=== PATIENT | male | born 1975 | race African-American/Black ===

== ENCOUNTER 2020-08-18 00:53 | Inpatient (IN) ==
[2020-08-18] MEDS ORDERED: VANCOMYCIN INJ 1,000 MG in SODIUM CHLORIDE 0.9% 250 ML IV STA ×2 (01:18→02:58)
[2020-08-18] MEDS ORDERED: PIPERACILLIN/TAZOBACTAM 3,375 MG in SODIUM CHLORIDE 0.9% 100 ML IV STA (01:18)
[2020-08-18] MEDS ORDERED: hydrALAZINE 20 MG/1 ML VIAL IV STA (01:18)
[2020-08-18] MEDS ORDERED: HYDROmorphone 2 MG/1 ML VIAL IV STA (01:18)
[2020-08-18] MEDS ORDERED: ONDANSETRON 4 MG/2 ML VIAL IV STA (01:18)
[2020-08-18 01:30] LABS: Basophils % 0.4 % (0.0-0.8); Eosinophils # 0.2 10*3/uL (0.0-0.87); Eosinophils % 2.4 % (0.00-10.9); Hematocrit 41.7 VOL% (42.0-52.0); Hemoglobin 12.7 GM/DL (14.0-18.0); Immature Granulocytes % 0.4 %; Immature Granulocytes Absolute 0.04 #; Lymphocytes # 2.3 10*3/uL (1.4-4.0); Lymphocytes % 23.6 % (21.2-54.2); Mean Corpuscular HGB Conc 30.5 GM/DL (32-36); Mean Corpuscular Volume 92.5 FL (87-102); Mean Platelet Volume 11.5 FL (9.6-12.0); Monocytes % 11.8 % (1.7-12.7); Neutrophils % 61.4 % (38.7-73.9); Platelet Count 203 T/CUMM (130-400); Red Blood Count 4.51 MC/CUMM (3.8-5.5); Red Cell Distribution Width 13.4 % (9.3-17.3); White Blood Count 9.7 T/CUMM (4-12)
[2020-08-18 01:48] LABS: Alanine Aminotransferase 17 U/L (16-61); Albumin 3.3 G/DL (3.4-5.0); Alkaline Phosphatase 67 U/L (45-117); Aspartate Amino Transferase 11 U/L (0-37); Bilirubin,Total < 0.39 MG/DL (0.2-1.0); Blood Urea Nitrogen 14 MG/DL (7-18); Calcium 8.8 MG/DL (8.5-10.1); Carbon Dioxide 33 MMOL/L (21-32); Estimated Glom Filtration Rate 154 ML/MIN; Glucose 346 MG/DL (74-106); Potassium 3.9 MMOL/L (3.5-5.1); Sodium 136 MMOL/L (136-145)
[2020-08-18 01:49] LABS: Troponin I 0.096 NG/ML (0.00-0.045)
[2020-08-18] MEDS ORDERED: INSULIN REGULAR 100 UNIT/ML SUBCUT STA (01:54)
[2020-08-18] MEDS ORDERED: GLUCAGON 1 MG VIAL IM PRN ×2 (02:30)
[2020-08-18] MEDS ORDERED: hydrALAZINE 20 MG/1 ML VIAL IV PRN (02:30)
[2020-08-18] MEDS ORDERED: DEXTROSE 50% 25 GM/50 ML VIAL IV PRN ×2 (02:30)
[2020-08-18] MEDS: ENOXAPARIN 40 MG/0.4 ML SYRINGE SUBCUT SCH (03:28)
[2020-08-18] MEDS: PIPERACILLIN/TAZOBACTAM 3,375 MG in SODIUM CHLORIDE 0.9% 100 ML IV SCH ×2 (09:37→17:32)
[2020-08-18] MEDS: LOSARTAN 50 MG TABLET PO SCH ×2 (09:40→20:21)
[2020-08-18] MEDS: INSULIN REGULAR 100 UNIT/ML SUBCUT SCH ×4 (10:16→20:21)
[2020-08-18] MEDS: VANCOMYCIN INJ 2,000 MG in SODIUM CHLORIDE 0.9% 500 ML IV SCH (13:29)
[2020-08-18] MEDS: PANTOPRAZOLE 40 MG TABLET PO SCH (15:32)
[2020-08-18] MEDS: SIMVASTATIN 40 MG TABLET PO SCH (20:21)
[2020-08-19] MEDS: VANCOMYCIN INJ 2,000 MG in SODIUM CHLORIDE 0.9% 500 ML IV SCH ×2 (00:03→16:53)
[2020-08-19] MEDS: ENOXAPARIN 40 MG/0.4 ML SYRINGE SUBCUT SCH (03:25)
[2020-08-19] MEDS: ONDANSETRON 4 MG/2 ML VIAL IV PRN (03:47)
[2020-08-19] MEDS: PIPERACILLIN/TAZOBACTAM 3,375 MG in SODIUM CHLORIDE 0.9% 100 ML IV SCH ×3 (04:01→20:38)
[2020-08-19 06:19] LABS: Albumin 3.3 G/DL (3.4-5.0); Bilirubin,Total 1.2 MG/DL (0.2-1.0); Calcium 8.9 MG/DL (8.5-10.1); Osmolality,Calculated 280.8 MOS/KG (273-304); Potassium 3.8 MMOL/L (3.5-5.1); Total Protein 7.9 G/DL (6.4-8.2)
[2020-08-19 06:39] LABS: Basophils % 0.3 % (0.0-0.8); Eosinophils # 0.1 10*3/uL (0.0-0.87); Eosinophils % 0.7 % (0.00-10.9); Hematocrit 40.1 VOL% (42.0-52.0); Hemoglobin 12.1 GM/DL (14.0-18.0); Immature Granulocytes % 0.4 %; Immature Granulocytes Absolute 0.06 #; Lymphocytes # 1.9 10*3/uL (1.4-4.0); Lymphocytes % 13.5 % (21.2-54.2); Mean Corpuscular HGB Conc 30.2 GM/DL (32-36); Mean Corpuscular Volume 94.4 FL (87-102); Mean Platelet Volume 11.7 FL (9.6-12.0); Monocytes % 9.5 % (1.7-12.7); Neutrophils % 75.6 % (38.7-73.9); Platelet Count 201 T/CUMM (130-400); Red Blood Count 4.25 MC/CUMM (3.8-5.5); Red Cell Distribution Width 13.7 % (9.3-17.3); White Blood Count 13.7 T/CUMM (4-12)
[2020-08-19 06:50] LABS: Anisocytosis 2+; Platelet Estimate Normal
[2020-08-19] MEDS ORDERED: DEXTROSE 50% 25 GM/50 ML VIAL IV PRN (07:17)
[2020-08-19] MEDS: INSULIN REGULAR 100 UNIT/ML SUBCUT SCH ×4 (09:54→22:00)
[2020-08-19] MEDS: hydroCHLOROthiazide 25 MG TABLET PO SCH (09:54)
[2020-08-19] MEDS: LOSARTAN 50 MG TABLET PO SCH ×2 (09:54→20:38)
[2020-08-19] MEDS: PANTOPRAZOLE 40 MG TABLET PO SCH (09:54)
[2020-08-19] MEDS: INSULIN GLARGINE 100 UNIT/ML SUBCUT SCH (09:55)
[2020-08-19] MEDS ORDERED: SKIN HEALING OINT (AQUAPHOR) 50 GM TUBE TOP PRN (14:02)
[2020-08-19] MEDS: SIMVASTATIN 40 MG TABLET PO SCH (20:38)
[2020-08-20] MEDS: VANCOMYCIN INJ 2,000 MG in SODIUM CHLORIDE 0.9% 500 ML IV SCH (01:03)
[2020-08-20] MEDS: ENOXAPARIN 40 MG/0.4 ML SYRINGE SUBCUT SCH (02:54)
[2020-08-20] MEDS: PIPERACILLIN/TAZOBACTAM 3,375 MG in SODIUM CHLORIDE 0.9% 100 ML IV SCH (04:51)
[2020-08-20 06:44] LABS: Calcium 9.2 MG/DL (8.5-10.1); Osmolality,Calculated 280.7 MOS/KG (273-304); Potassium 3.7 MMOL/L (3.5-5.1)
[2020-08-20 07:10] LABS: Basophils % 0.3 % (0.0-0.8); Eosinophils # 0.1 10*3/uL (0.0-0.87); Eosinophils % 0.8 % (0.00-10.9); Hematocrit 40.6 VOL% (42.0-52.0); Hemoglobin 12.2 GM/DL (14.0-18.0); Immature Granulocytes % 0.5 %; Immature Granulocytes Absolute 0.05 #; Lymphocytes % 19.1 % (21.2-54.2); Mean Corpuscular Volume 93.3 FL (87-102); Mean Platelet Volume 11.5 FL (9.6-12.0); Monocytes % 10.3 % (1.7-12.7); Platelet Count 193 T/CUMM (130-400); Red Blood Count 4.35 MC/CUMM (3.8-5.5); Red Cell Distribution Width 13.4 % (9.3-17.3); White Blood Count 10.7 T/CUMM (4-12)
[2020-08-20] MEDS: LOSARTAN 50 MG TABLET PO SCH ×2 (10:13→20:05)
[2020-08-20] MEDS: hydroCHLOROthiazide 25 MG TABLET PO SCH (10:13)
[2020-08-20] MEDS: PANTOPRAZOLE 40 MG TABLET PO SCH (10:13)
[2020-08-20] MEDS: INSULIN GLARGINE 100 UNIT/ML SUBCUT SCH (10:13)
[2020-08-20] MEDS: INSULIN REGULAR 100 UNIT/ML SUBCUT SCH ×4 (10:14→21:13)
[2020-08-20] MEDS: NAFCILLIN 2,000 MG in SODIUM CHLORIDE 0.9% 100 ML IV SCH ×3 (16:10→23:55)
[2020-08-20] MEDS: SIMVASTATIN 40 MG TABLET PO SCH (20:04)
[2020-08-21] MEDS: NAFCILLIN 2,000 MG in SODIUM CHLORIDE 0.9% 100 ML IV SCH ×5 (03:25→19:29)
[2020-08-21] MEDS: ENOXAPARIN 40 MG/0.4 ML SYRINGE SUBCUT SCH (03:26)
[2020-08-21 06:11] LABS: Basophils % 0.2 % (0.0-0.8); Eosinophils # 0.1 10*3/uL (0.0-0.87); Eosinophils % 1.3 % (0.00-10.9); Hemoglobin 12.1 GM/DL (14.0-18.0); Immature Granulocytes % 0.4 %; Immature Granulocytes Absolute 0.04 #; Lymphocytes # 1.5 10*3/uL (1.4-4.0); Lymphocytes % 14.1 % (21.2-54.2); Mean Corpuscular HGB Conc 30.3 GM/DL (32-36); Mean Corpuscular Volume 93.5 FL (87-102); Monocytes % 10.3 % (1.7-12.7); Neutrophils % 73.7 % (38.7-73.9); Platelet Count 191 T/CUMM (130-400); Red Blood Count 4.28 MC/CUMM (3.8-5.5); Red Cell Distribution Width 13.4 % (9.3-17.3); White Blood Count 10.4 T/CUMM (4-12)
[2020-08-21 07:09] LABS: Calcium 8.8 MG/DL (8.5-10.1); Osmolality,Calculated 280.8 MOS/KG (273-304); Potassium 3.6 MMOL/L (3.5-5.1)
[2020-08-21] MEDS: hydroCHLOROthiazide 25 MG TABLET PO SCH (07:37)
[2020-08-21] MEDS: INSULIN GLARGINE 100 UNIT/ML SUBCUT SCH (09:40)
[2020-08-21] MEDS: LOSARTAN 50 MG TABLET PO SCH ×2 (09:41→20:52)
[2020-08-21] MEDS: PANTOPRAZOLE 40 MG TABLET PO SCH (09:41)
[2020-08-21] MEDS: INSULIN REGULAR 100 UNIT/ML SUBCUT SCH ×4 (09:41→20:53)
[2020-08-21] MEDS: SIMVASTATIN 40 MG TABLET PO SCH (20:52)
[2020-08-22] MEDS: NAFCILLIN 2,000 MG in SODIUM CHLORIDE 0.9% 100 ML IV SCH ×7 (00:19→22:55)
[2020-08-22] MEDS: ONDANSETRON 4 MG/2 ML VIAL IV PRN (00:20)
[2020-08-22] MEDS: ENOXAPARIN 40 MG/0.4 ML SYRINGE SUBCUT SCH (03:21)
[2020-08-22 05:33] LABS: Basophils % 0.3 % (0.0-0.8); Eosinophils # 0.1 10*3/uL (0.0-0.87); Eosinophils % 1.3 % (0.00-10.9); Hematocrit 40.3 VOL% (42.0-52.0); Hemoglobin 12.3 GM/DL (14.0-18.0); Immature Granulocytes % 0.5 %; Immature Granulocytes Absolute 0.05 #; Lymphocytes # 2.1 10*3/uL (1.4-4.0); Lymphocytes % 20.8 % (21.2-54.2); Mean Corpuscular HGB Conc 30.5 GM/DL (32-36); Mean Corpuscular Volume 93.1 FL (87-102); Mean Platelet Volume 11.7 FL (9.6-12.0); Monocytes % 10.1 % (1.7-12.7); Platelet Count 185 T/CUMM (130-400); Red Blood Count 4.33 MC/CUMM (3.8-5.5); Red Cell Distribution Width 13.3 % (9.3-17.3); White Blood Count 10.2 T/CUMM (4-12)
[2020-08-22 05:52] LABS: Calcium 8.9 MG/DL (8.5-10.1); Potassium 3.4 MMOL/L (3.5-5.1)
[2020-08-22] MEDS ORDERED: POTASSIUM CHLORIDE 20 MEQ TABLET PO ONE (08:04)
[2020-08-22] MEDS: INSULIN GLARGINE 100 UNIT/ML SUBCUT SCH (09:55)
[2020-08-22] MEDS: INSULIN REGULAR 100 UNIT/ML SUBCUT SCH ×4 (09:56→20:57)
[2020-08-22] MEDS: LOSARTAN 50 MG TABLET PO SCH ×2 (09:56→20:57)
[2020-08-22] MEDS: PANTOPRAZOLE 40 MG TABLET PO SCH (09:56)
[2020-08-22] MEDS: hydroCHLOROthiazide 25 MG TABLET PO SCH (09:56)
[2020-08-22] MEDS: SIMVASTATIN 40 MG TABLET PO SCH (20:57)
[2020-08-23] MEDS: NAFCILLIN 2,000 MG in SODIUM CHLORIDE 0.9% 100 ML IV SCH ×3 (02:46→11:00)
[2020-08-23] MEDS: ENOXAPARIN 40 MG/0.4 ML SYRINGE SUBCUT SCH (02:47)
[2020-08-23 06:41] LABS: Calcium 8.9 MG/DL (8.5-10.1); Osmolality,Calculated 282.5 MOS/KG (273-304); Potassium 3.3 MMOL/L (3.5-5.1)
[2020-08-23] MEDS: INSULIN REGULAR 100 UNIT/ML SUBCUT SCH ×2 (08:59→12:10)
[2020-08-23] MEDS: LOSARTAN 50 MG TABLET PO SCH (09:00)
[2020-08-23] MEDS: PANTOPRAZOLE 40 MG TABLET PO SCH (09:00)
[2020-08-23] MEDS: INSULIN GLARGINE 100 UNIT/ML SUBCUT SCH (09:00)
[2020-08-23] MEDS: hydroCHLOROthiazide 25 MG TABLET PO SCH (09:00)
[2020-08-23] MEDS ORDERED: POTASSIUM CHLORIDE 20 MEQ TABLET PO ONE (10:14)
[2020-08-23 11:55] VITALS: BP 141/63
== END 2020-08-23 16:36 | disposition home or self-care (01) | DRG 638 ==
LOC: EDUNIT# → EDBD → N.EDINP 00:53 → N.ED 00:53 → N.EDINP 04:00 → N.3E 04:13 → SUATTDRO 08-19 11:21
PROVIDERS: ADMIT Internal Medicine; ATTEND Hospitalist